=== PATIENT | female | born 1995 | race Hispanic/Latino ===

== ENCOUNTER 2016-07-28 09:50 | Emergency (ER) | payer OTHER ==
[~2016-07-28] VITALS: Ht 157.5 cm; Wt 72.7 kg
[2016-07-28] MEDS ORDERED: LIDOCAINE 1% MDV 20ML VIAL As Ordered ONE (10:09)
[2016-07-28] MEDS ORDERED: LIDOCAINE 1% SDV INJ 30 ML VIAL SC SCH (11:00)
[2016-07-28] MEDS ORDERED: PERCOCET 5MG/325MG TAB PO ONE (11:00)
[2016-07-28] MEDS ORDERED: CEPHALEXIN 500 MG CAP PO ONE (11:00)
[2016-07-28] MEDS ORDERED: BUPIVACAINE HCL 0.5% 10 ML VIAL SC ONE (11:00)
[2016-07-28] MEDS ORDERED: LIDOCAINE 1% MDV 20ML VIAL SC ONE (11:15)
--- NOTE | 2016-07-28 12:21 | REP ---
LEFT FINGERS, FOUR VIEWS: HISTORY: Injury. There is a comminuted fracture of the distal phalange of the 1st digit. There is no dislocation. The joint spaces are normal in appearance. IMPRESSION: Comminuted fracture of the distal phalange of the first digit. Signed by Shiraz Pimentel MD 07/28/2016 12:33 P
[2016-07-28] MEDS ORDERED: KEFL500C7 PO (12:41)
[2016-07-28 12:49] VITALS: BP 126/80
== END 2016-07-28 12:51 | disposition home or self-care (01) ==
LOC: M ED 10:54
DX: S62.525B Nondisplaced fracture of distal phalanx of left thumb, initial encounter for open fracture (principal); W20.8XXA Other cause of strike by thrown, projected or falling object, initial encounter; Y92.9 Unspecified place or not applicable; Y93.89 Activity, other specified; Y99.9 Unspecified external cause status

== ENCOUNTER → 2017-12-21 | Outpatient (CLI) | payer OTHER ==
[~2017-12-21] MED LIST: CONRAY-43 43% 50ML VIAL (Q9960) As Ordered; PROHANCE 279.3MG/ML 5ML VIAL (A9576) As Ordered
== END ==
LOC: M RADPRO 06:22
DX: M75.82 Other shoulder lesions, left shoulder (principal); M75.52 Bursitis of left shoulder
CPT/HCPCS: 23350